=== PATIENT | female | born 1945 | race Caucasian/White ===

== ENCOUNTER 2017-10-29 10:19 | Inpatient (IN) | payer MEDICARE ==
[~2017-10-29] VITALS: Ht 170.2 cm; Wt 68.5 kg
--- NOTE | ~2017-10-29 | PN ---
PATIENT:KIRT PADILLA MEDICAL RECORD: [id number] LOCATION:[facility] Ehs[facility]hung[facility]at[facility] ADMISSION DATE: 10/29/17 PROGRESS NOTE DATE OF SERVICE: 11/11/2017 SUBJECTIVE: The patient's case was discussed with staff. She has no new complaint. OBJECTIVE: The patient denies intent to harm herself or others. She is severely impaired cognitively, but showing no evidence of acute or direct dangerousness to others or herself. ASSESSMENT: No change in diagnoses. PLAN: The patient will be transitioned out of the hospital into the [facility] today. She is going to return to the [facility], which is the same [facility] that she was sent to us from. She has fairly limited insight about her condition. Her long-term prognosis is guarded. TRANSINT:[id number] Voice Confirmation ID: [id number] DOCUMENT ID: [id number] HANNA GROSS MD at 1329 CC: [id number] DICTATION DATE: 11/11/17 1349 HAND DRY CLEANER: 11/11/17 1434 DIS IN 11/11/17 [facility] [address] [place] [address]
--- NOTE | ~2017-10-29 | PN ---
PATIENT:KIRT PADILLA MEDICAL RECORD: [id number] LOCATION:[facility]ED [facility] ADMISSION DATE: 10/29/17 PROGRESS NOTE DATE OF SERVICE: 11/09/2017 SUBJECTIVE: The patient's case was discussed with staff. She has no new complaint. OBJECTIVE: The patient is in good behavioral control with limited insight about her condition. She does tolerate her medicines well. Eye contact is fair. Concentration is fair. ASSESSMENT: No change in diagnoses. PLAN: The patient's mood has dramatically improved since admission. I have her taking a low dose of Zoloft and I am going to go ahead and increase the dose to see if any additional clinical benefit can be attained. Her long-term prognosis is guarded. I do anticipate she will be transitioned back to the [facility] soon. TRANSINT:[id number] Voice Confirmation ID: [id number] DOCUMENT ID: [id number] HANNA GROSS MD at 1402 CC: [id number] DICTATION DATE: 11/09/17 1438 OPERATIONS INTERN: 11/09/17 1534 ADM IN [facility] [address] [place] [address]
--- NOTE | ~2017-10-29 | PN ---
PATIENT:KIRT PADILLA MEDICAL RECORD: [id number] LOCATION:OBED [facility] ADMISSION DATE: 10/29/17 PROGRESS NOTE DATE OF SERVICE: 11/06/2017 SUBJECTIVE: The patient's case was discussed with staff. She has no new complaint. OBJECTIVE: The patient denies intent to harm herself or others. She generally tolerates her medicines well. She is actually much more pleasant than she has been. She still wants to go live in her own home in [place], which is obviously not realistic, but at this point she is not threatening or aggressive. ASSESSMENT: No change in diagnoses. PLAN: I have reviewed current medicines and plan to maintain them at this dose. Follow up will be with her primary care physician and it is my understanding that her next of kin, who is her sister, is wanting her to return to the [facility]. TRANSINT:[id number] Voice Confirmation ID: [id number] DOCUMENT ID: [id number] HANNA GROSS MD at 0742 CC: [id number] DICTATION DATE: 11/06/17 1452 DINKER: 11/06/17 1523 ADM IN [facility] [address] [place] [address]
--- NOTE | ~2017-10-29 | PN ---
PATIENT:KIRT PADILLA MEDICAL RECORD: [id number] LOCATION:[facility]ED [facility] ADMISSION DATE: 10/29/17 PROGRESS NOTE DATE OF SERVICE: 11/08/2017 SUBJECTIVE: The patient's case was discussed with staff. She has no new complaint. OBJECTIVE: The patient is in good behavioral control with limited insight about her condition. She does tolerate her medicines well. Eye contact is fair. Concentration is fair. ASSESSMENT: No change in diagnoses. PLAN: Brief supportive and educational interventions were made. Long-term prognosis is guarded. TRANSINT:[id number] Voice Confirmation ID: [id number] DOCUMENT ID: [id number] HANNA GROSS MD at 1428 CC: [id number] DICTATION DATE: 11/08/17 1026 INCOMING FREIGHT CLERK: 11/08/17 1300 ADM IN [place] [id number] [place] [address]
--- NOTE | ~2017-10-29 | PN ---
PATIENT:KIRT PADILLA MEDICAL RECORD: [id number] LOCATION:[facility]ED [facility] ADMISSION DATE: 10/29/17 PROGRESS NOTE DATE OF SERVICE: 11/02/2017 SUBJECTIVE: The patient's case was discussed with staff. She has no new complaint. OBJECTIVE: The patient is in good behavioral control with limited insight about her condition. She tolerates her medicines well. She is sleeping well. She is eating reasonably well. She is not as agitated as she has been and I would anticipate she could be transitioned out of the hospital soon if this level of improvement is maintained. TRANSINT:[id number] Voice Confirmation ID: [id number] DOCUMENT ID: [id number] HANNA GROSS MD at 1508 CC: [id number] DICTATION DATE: 11/02/17 1458 IN HOME TUTOR: 11/02/17 1650 ADM IN [place] [id number] [place] [address]
--- NOTE | ~2017-10-29 | PN ---
PATIENT:KIRT PADILLA MEDICAL RECORD: [id number] LOCATION:[facility]ED [facility] ADMISSION DATE: 10/29/17 PROGRESS NOTE DATE OF SERVICE: 11/05/2017 SUBJECTIVE: The patient's case was discussed with staff. She has no new complaint. OBJECTIVE: The patient is in good behavioral control with limited insight about her condition. She tolerates her medicines well. Eye contact is fair. ASSESSMENT: No change in diagnoses. PLAN: Supportive and educational interventions were made. Long-term prognosis is guarded. TRANSINT:[id number] Voice Confirmation ID: [id number] DOCUMENT ID: [id number] HANNA GROSS MD at 1223 CC: [id number] DICTATION DATE: 11/05/17 1357 CNC SUPERVISOR: 11/05/17 1625 ADM IN [place] [id number] [place] [address]
--- NOTE | ~2017-10-29 | PN ---
PATIENT:KIRT PADILLA MEDICAL RECORD: [id number] LOCATION:[facility] ADMISSION DATE: 10/29/17 PROGRESS NOTE DATE OF SERVICE: 11/10/2017 SUBJECTIVE: The patient's case was discussed with staff. She has no new complaint. OBJECTIVE: The patient denies intent to harm herself or others. She is actually much more pleasant than she has been, although she is still not eating very well. ASSESSMENT: No change in diagnoses. PLAN: The patient will be transitioned back to the [facility] tomorrow. Her long-term prognosis is guarded. Followup will be with the [facility] physician. TRANSINT:[id number] Voice Confirmation ID: [id number] DOCUMENT ID: [id number] HANNA GROSS MD at 1315 CC: [id number] DICTATION DATE: 11/10/17 1457 DOUGH PUNCHER: 11/10/17 1538 ADM IN [place] [address] [place] [address]
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
--- NOTE | ~2017-10-29 | PN ---
PATIENT:KIRT PADILLA MEDICAL RECORD: [id number] LOCATION:OBED [facility] ADMISSION DATE: 10/29/17 PROGRESS NOTE DATE OF SERVICE: 11/07/2017 SUBJECTIVE: The patient's case was discussed with staff. She has no new complaint. OBJECTIVE: The patient is in good behavioral control with limited insight about her condition. She tolerates her medicines well. She is much more pleasant than she was a few days ago. There is no evidence of sedation. The record showed that she has not had a bowel movement for over a week, but she is ambulatory and toilets herself, so I do not think that is correct. Although she is not eating all of her meals, what she is eating is adequate and I am not going to make an issue of that at this point. She definitely needs half-way placement or put another way 07-bxzf-v-day supervision. Given her circumstances, the half-way is the least restrictive environment and at this point, I would plan to return her to the [facility] soon. TRANSINT:[id number] Voice Confirmation ID: [id number] DOCUMENT ID: [id number] HANNA GROSS MD at 0949 CC: [id number] DICTATION DATE: 11/07/17818 LOBSTER MAN: 11/07/17 0855 ADM IN [place] [address] [place] [address]
--- NOTE | ~2017-10-29 | PN ---
PATIENT:KIRT PADILLA MEDICAL RECORD: [id number] LOCATION:[facility]ED [address] ADMISSION DATE: 10/29/17 PROGRESS NOTE DATE OF SERVICE: 11/04/2017 SUBJECTIVE: The patient's case was discussed with staff. She has no new complaint. OBJECTIVE: The patient is in good behavioral control with limited insight about her condition. She tolerates her medicines well. Eye contact is fair. ASSESSMENT: No change in diagnoses. PLAN: The patient will be maintained on current medicines, which I have reviewed. I am going to start her on an antidepressant medication. She is denying depressive symptoms, but she has an observed depressed mood and she also has some irritability that I think will be helped by the medication. The relative risks and benefits have been weighed and I think clearly there is likelihood of doing more good than the low risk associated with the Zoloft. TRANSINT:[id number] Voice Confirmation ID: [id number] DOCUMENT ID: [id number] HANNA GROSS MD at 0849 CC: [id number] DICTATION DATE: 11/04/17 1613 DEPORTATION OFFICER: 11/04/17 1756 ADM IN [place] [id number] [place] [address]
--- NOTE | ~2017-10-29 | PN ---
PATIENT:KIRT PADILLA MEDICAL RECORD: [id number] LOCATION:[facility]ED [facility] ADMISSION DATE: 10/29/17 PROGRESS NOTE DATE OF SERVICE: 10/31/2017 SUBJECTIVE: The patient's case was discussed with staff. She has no new complaint. OBJECTIVE: The patient is in good behavioral control with limited insight about her condition. She tolerates her medicines well. Eye contact is fair. Concentration is fair. ASSESSMENT: No change in diagnoses. PLAN: Brief supportive and educational interventions were made. Long-term prognosis is guarded. The patient has been somewhat anxious and I am going to increase the dose of her BuSpar to 10 mg twice daily. TRANSINT:[id number] Voice Confirmation ID: [id number] DOCUMENT ID: [id number] HANNA GROSS MD at 1039 CC: [id number] DICTATION DATE: 10/31/17 1159 NON DESTRUCTIVE EVALUATION TECHNICIAN: 10/31/17 1215 ADM IN [place] [address] [place] [address]
--- NOTE | ~2017-10-29 | PN ---
PATIENT:KIRT PADILLA MEDICAL RECORD: [id number] LOCATION:EhsanALEXISMalcolm [address] ADMISSION DATE: 10/29/17 PROGRESS NOTE DATE OF SERVICE: 10/30/2017 SUBJECTIVE: The patient's case was discussed with staff. She has no new complaint. OBJECTIVE: The patient denies intent to harm herself or others. She is withdrawn and clearly impaired cognitively, but is actively participating in treatment. ASSESSMENT: No change in diagnoses. PLAN: The patient will have her Klonopin discontinued. She certainly is calm at this point and it may need to be restarted or restarted at a lower dose, but for today, I am going to hold the medication and will observe any changes that occur. TRANSINT:[id number] Voice Confirmation ID: [id number] DOCUMENT ID: [id number] HANNA GROSS MD at 1007 CC: [id number] DICTATION DATE: 10/30/17 1436 MANAGER BAKERY: 10/30/17 1448 ADM IN [place] [id number] [place] [id number]
--- NOTE | ~2017-10-29 | PN ---
PATIENT:KIRT PADILLA MEDICAL RECORD: [id number] LOCATION:OBED [address] ADMISSION DATE: 10/29/17 PROGRESS NOTE DATE OF SERVICE: 11/01/2017 SUBJECTIVE: The patient's case was discussed with staff. She has no new complaint. OBJECTIVE: The patient denies intent to harm herself or others. She generally tolerates her medicines well. Eye contact is fair. Concentration is fair. ASSESSMENT: No change in diagnoses. PLAN: Supportive and educational interventions were made. Long-term prognosis is guarded. TRANSINT:[id number] Voice Confirmation ID: [id number] DOCUMENT ID: [id number] HANNA GROSS MD at 1320 CC: [id number] DICTATION DATE: 11/01/17 1112 SECURITY MONITOR: 11/01/17 1151 ADM IN [place] [id number] [place] [address]
--- NOTE | ~2017-10-29 | PN ---
PATIENT:KIRT PADILLA MEDICAL RECORD: [id number] LOCATION:OBED Villalta[facility] ADMISSION DATE: 10/29/17 PROGRESS NOTE DATE OF SERVICE: 11/03/2017 SUBJECTIVE: The patient's case was discussed with staff. She has no new complaint. OBJECTIVE: The patient is in good behavioral control with limited insight about her condition. She does tolerate her medicines well. She is irritable and angry, but not physically aggressive. It is clear she is quite confused. ASSESSMENT: No change in diagnoses. PLAN: The patient will be started on Namenda at a dose of 2.5 mg twice daily. Namenda is being used to treat her underlying cognitive impairment. She will be monitored for clinical changes associated with its use. TRANSINT:[id number] Voice Confirmation ID: [id number] DOCUMENT ID: [id number] HANNA GROSS MD at 1520 CC: [id number] DICTATION DATE: 11/03/17 1541 BOX ANNEALER: 11/03/17 1634 ADM IN [place] [id number] [place] [id number]
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
[2017-10-29] MEDS ORDERED: ANORO ELLIPTA1 EACH INH (11:01)
[2017-10-29] MEDS ORDERED: LIPITOR10 MG PO (11:02)
[2017-10-29] MEDS ORDERED: BUSPAR5 MG PO (11:03)
[2017-10-29] MEDS ORDERED: CALCIUM 600+D T1 TA1 PO (11:06)
[2017-10-29] MEDS ORDERED: ARICEPT23 MG PO (11:07)
[2017-10-29] MEDS ORDERED: IBUPROFEN200 MG PO (11:19)
[2017-10-29] MEDS ORDERED: REMERON15 MG PO (11:20)
[2017-10-29] MEDS ORDERED: SYNTHROID50 MCG PO (11:20)
[2017-10-29] MEDS ORDERED: ZYPREXA2.5 MG PO (11:21)
[2017-10-29] MEDS ORDERED: PRESERVISION AR1 CAP PO (11:21)
[2017-10-29] MEDS ORDERED: SUPER B COMPLE150 MG PO (11:21)
[2017-10-29 12:01] LABS: BASOPHILS 0.2 % (0-2); EOSINOPHILS 0.2 % (0-7); HEMATOCRIT 38.6 % (36.0-48.0); HEMOGLOBIN 12.8 g/dL (12-16); IMMATURE GRANULOCYTES 0.2 % (0-5); LYMPHOCYTES 23.6 % (15-50); MCH 29.8 pg (26.0-34.0); MCHC 33.2 g/dL (31.0-37.0); MCV 89.8 fL (80.0-100.0); MEAN PLATELET VOLUME 9.9 fL (7.4-10.4); NEUTROPHILS 70.8 % (40-80); PLATELET COUNT 162 10x3/uL (130-400); RDW 13.5 % (11.5-14.5); WBC 8.4 10x3/uL (4.8-10.8)
[2017-10-29 12:10] LABS: ALBUMIN 3.9 g/dL (3.4-5.0); ALKALINE PHOSPHATASE 58 U/L (46-116); ALT (SGPT) 19 U/L (10-68); BILIRUBIN - TOTAL 0.53 mg/dL (0.2-1.3); CALC OSMOLALITY 282 mosm/kg (275-300); CALCIUM 9.2 mg/dL (8.5-10.1); CARBON DIOXIDE 29.6 mmol/L (21.0-32.0); CHLORIDE - SERUM 104 mmol/L (98-107); CHOL - HDL RATIO 3.4 ratio (2.3-4.1); CHOLESTEROL, TOTAL 167 mg/dL (0-200); CREATININE - SERUM 0.8 mg/dL (0.6-1.3); GLUCOSE 97 mg/dL (74-106); HDL CHOLESTEROL 49 mg/dL (32-96); LDL CHOLESTEROL 105 mg/dL (0-100); LDL-HDL RATIO 2.1 ratio (1.5-3.5); POTASSIUM - SERUM 3.6 mmol/L (3.5-5.1); PROTEIN - SERUM 8.2 g/dL (6.4-8.2); SODIUM 140 mmol/L (136-145); THYROID STIMULATING HORMONE 0.64 uIU/mL (0.36-3.74); TRIGLYCERIDE 68 mg/dL (30-200); UREA NITROGEN 23 mg/dL (7-18); eGFR NON AFRICAN AMERICAN 75 mL/min (90-120)
[2017-10-29 15:10] VITALS: BP 134/51; BMI 28.9
[2017-10-29 19:45] VITALS: BP 127/54
[2017-10-30 06:16] LABS: VITAMIN D 25 HYDROXY 39.2 ng/mL (30.0-100.0)
[2017-10-30 07:35] LABS: RAPID PLASMA REAGIN Non Reactive (Non Reactive)
[2017-10-30 08:05] VITALS: BP 152/60
[2017-10-30 09:20] LABS: FOLATE (FOLIC ACID) - SERUM >20.0 ng/mL (>3.0)
[2017-10-30 13:03] VITALS: BMI 28.8
[2017-10-30 19:31] VITALS: BP 125/57
[2017-10-31 09:35] VITALS: BP 129/69; BP 129/74
[2017-10-31 22:32] VITALS: BP 121/61
[2017-11-01 08:18] VITALS: BP 169/75
[2017-11-01 19:57] VITALS: BP 134/49
[2017-11-02 07:48] VITALS: BP 131/73
[2017-11-02 20:23] VITALS: BP 133/59; BP 151/87
[2017-11-03 08:55] VITALS: BP 135/64
[2017-11-03 21:12] VITALS: BP 133/68
[2017-11-03 23:42] LABS: APPEARANCE CLEAR (CLEAR); BILIRUBIN NEGATIVE (NEGATIVE); COLOR YELLOW (YELLOW); GLUCOSE NEGATIVE (NEGATIVE); KETONE NEGATIVE (NEGATIVE); NITRITE NEGATIVE (NEGATIVE); PROTEIN NEGATIVE (NEGATIVE); UROBILINOGEN NORMAL (NORMAL)
[2017-11-03 23:43] LABS: BACTERIA FEW /hpf (NONE SEEN); EPITHELIAL CELLS 0-5 /hpf (0-5); RED CELLS - URINE 0-5 /hpf (0-5)
[2017-11-04 08:15] VITALS: BP 155/82
[2017-11-04 20:11] VITALS: BP 143/55
[2017-11-05 10:47] VITALS: BP 125/60
[2017-11-05 19:48] VITALS: BP 122/52
[2017-11-06 09:55] VITALS: BP 130/60
[2017-11-06 21:20] VITALS: BP 150/85
[2017-11-07 08:00] VITALS: BP 163/78
[2017-11-07 20:06] VITALS: BP 160/74
[2017-11-08 07:00] VITALS: BP 168/67
[2017-11-08 20:21] VITALS: BP 109/69
[2017-11-09 07:00] VITALS: BP 143/66
[2017-11-09 12:10] VITALS: Ht 170.2 cm; Wt 68.5 kg
[2017-11-10 07:00] VITALS: BP 119/52
[2017-11-10] MEDS ORDERED: NAMENDA5 MG PO (14:59)
[2017-11-10] MEDS ORDERED: ZOLOFT50 MG PO (14:59)
[2017-11-10] MEDS ORDERED: BUSPAR10 MG PO (14:59)
[2017-11-10 19:41] VITALS: BP 146/53
[2017-11-11 10:22] VITALS: BP 106/53
== END 2017-11-11 13:00 | DRG 57 ==
LOC: D.PSYCH 10:19
PROVIDERS: Psychiatry & Neurology Psychiatry
DX: G30.1 Alzheimer's disease with late onset (principal); F02.81 Dementia in other diseases classified elsewhere, unspecified severity, with behavioral disturbance; F32.1 Major depressive disorder, single episode, moderate; F41.1 Generalized anxiety disorder; E03.9 Hypothyroidism, unspecified; E78.5 Hyperlipidemia, unspecified; Z87.891 Personal history of nicotine dependence; J44.9 Chronic obstructive pulmonary disease, unspecified; K59.00 Constipation, unspecified

== ENCOUNTER 2018-03-26 15:14 | Inpatient (IN) | payer MEDICARE ==
[~2018-03-26] VITALS: Ht 157.5 cm; Wt 68.9 kg
[~2018-03-26 15:14] MED LIST: ANORO ELLIPTA1 EACH INH; ARICEPT23 MG PO; BUSPAR10 MG PO; BUSPAR5 MG PO; CALCIUM 600+D T1 TA1 PO; IBUPROFEN200 MG PO; LIPITOR10 MG PO; NAMENDA5 MG PO; PRESERVISION AR1 CAP PO; REMERON15 MG PO; SUPER B COMPLE150 MG PO; SYNTHROID50 MCG PO; ZOLOFT50 MG PO; ZYPREXA2.5 MG PO
[2018-03-26] MEDS ORDERED: ARICEPT23 MG PO (15:41)
[2018-03-26] MEDS ORDERED: FUROSEMIDE20 MG PO (15:42)
[2018-03-26] MEDS ORDERED: REMERON15 MG PO (15:43)
[2018-03-26] MEDS ORDERED: preservision (15:44)
[2018-03-26] MEDS ORDERED: RISPERDAL0.25 MG PO (15:45)
[2018-03-26] MEDS ORDERED: ZOLOFT100 MG PO (15:46)
[2018-03-26] MEDS ORDERED: ALDACTONE100 MG PO (15:47)
[2018-03-26] MEDS ORDERED: SUPER B COMPLE150 MG PO (15:48)
[2018-03-26] MEDS ORDERED: K-TAB10 MEQ PO (15:57)
[2018-03-26 16:20] VITALS: BP 114/60; BMI 27.8
[2018-03-26 16:48] VITALS: BP 114/60; BMI 27.8
--- NOTE | 2018-03-26 18:31 | NUR ---
The patient is admitted to [facility] from the [facility]. She arrives on the stretcher with two EMS. She is confused, she does not know where she is or why she is here. She is having auditory hallucinations. She lifted her shirt and she talked to someone in there. She ambulates, she has a red left arm. She is wearing a splint from a recent break in her arm. Her left hand has some reddened areas in between the third and fourth finger. She came to us because she has been combative with other residents and she was putting soap on her skin and now her skin is inflammed on the right forearm.
[2018-03-26 20:03] LABS: BASOPHILS 0.2 % (0-2); EOSINOPHILS 1.1 % (0-7); HEMATOCRIT 37.9 % (36.0-48.0); HEMOGLOBIN 12.5 g/dL (12-16); IMMATURE GRANULOCYTES 0.1 % (0-5); LYMPHOCYTES 25.2 % (15-50); MCH 29.3 pg (26.0-34.0); MEAN PLATELET VOLUME 9.9 fL (7.4-10.4); MONOCYTES 7.2 % (2-11); NEUTROPHILS 66.2 % (40-80); PLATELET COUNT 192 10x3/uL (130-400); RBC 4.26 10x6/uL (4.00-5.40); RDW 13.6 % (11.5-14.5); WBC 9.1 10x3/uL (4.8-10.8)
[2018-03-26 20:29] LABS: ALBUMIN 2.4 g/dL (3.4-5.0); ALKALINE PHOSPHATASE 73 U/L (46-116); ALT (SGPT) 6 U/L (10-68); BILIRUBIN - TOTAL 0.22 mg/dL (0.2-1.3); CALC OSMOLALITY 277 mosm/kg (275-300); CARBON DIOXIDE 26.1 mmol/L (21.0-32.0); CHLORIDE - SERUM 101 mmol/L (98-107); CHOLESTEROL, TOTAL 153 mg/dL (0-200); GLUCOSE 76 mg/dL (74-106); HDL CHOLESTEROL 38 mg/dL (32-96); LDL CHOLESTEROL 92 mg/dL (0-100); LDL-HDL RATIO 2.4 ratio (1.5-3.5); POTASSIUM - SERUM 3.2 mmol/L (3.5-5.1); PROTEIN - SERUM 7.5 g/dL (6.4-8.2); SODIUM 139 mmol/L (136-145); THYROID STIMULATING HORMONE 3.95 uIU/mL (0.36-3.74); TRIGLYCERIDE 117 mg/dL (30-200); UREA NITROGEN 16 mg/dL (7-18)
[2018-03-26 20:32] LABS: eGFR NON AFRICAN AMERICAN > 90 mL/min (90-120)
[2018-03-26 20:33] LABS: CREATININE - SERUM < 0.6 mg/dL (0.6-1.3)
--- NOTE | 2018-03-26 20:44 | NUR ---
WENT TO DO EKG IN [facility]. TOOK HER INTO OPEN ROOM AND ATTEMPTED TO PUT EKG STICKERS ON CHEST. PATIENT BECAME COMBATIVE, COULD NOT DO EKG.
--- NOTE | 2018-03-26 22:00 | NUR ---
CRITICAL CALCIUM OF 4 RECEIVED FROM LAB. DOCTOR DIOR NOTIIFIED. ORDER TO START IV AND INFUSE ONE AMP OF CALCIUM GLUCONATE IV AND RECHECK CALCIUM IN MORNING RECEIVED. 22 G IV STARTED TO LEFT FOREARM X 1 ATTEMPT. RETURN BLOOD AND FLUSHES WITHOUT DIFFICULTY. SALINE LOC'D. AWAITING FOR MANAGEMENT AIDE TO BRING CALCIUM GLUCONATE.
--- NOTE | 2018-03-27 01:00 | NUR ---
RECEIVED IN PATIENT ROOM. RESTING IN BED WITH EYES OPEN. CALM AND COOPERATIVE WITH CARE AND ASSESSMENT. NO SIGNS OF AGGRESSION. REDIRECT AND REORIENT NEEDED. RESTING IN BED WITH EYES CLOSED AT THIS TIME. CONTINUE PLAN OF CARE.
[2018-03-27 08:00] VITALS: BP 118/62
[2018-03-27 08:11] VITALS: Ht 157.5 cm; Wt 68.9 kg
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
[2018-03-27 18:03] LABS: APPEARANCE CLEAR (CLEAR); BILIRUBIN NEGATIVE (NEGATIVE); COLOR YELLOW (YELLOW); GLUCOSE NEGATIVE (NEGATIVE); KETONE NEGATIVE (NEGATIVE); NITRITE NEGATIVE (NEGATIVE); PROTEIN NEGATIVE (NEGATIVE); SPECIFIC GRAVITY 1.015 (1.005-1.020); UROBILINOGEN NORMAL (NORMAL)
[2018-03-27 21:16] VITALS: BP 138/69
--- NOTE | 2018-03-28 00:40 | NUR ---
RECEIVED IN PATIENT ROOM. GETTING READY FOR BED. CALM AND COOPERATIVE WITH CARE AND ASSESSMENT. NO SIGSN OF AGGRESSION. REDIRECT AND REORIENT NEEDED. RESTING IN BED WITH EYES CLOSED AT THIS TIME. CONTINUE PLAN OF CARE.
[2018-03-28 08:00] VITALS: BP 116/58
--- NOTE | 2018-03-28 11:13 | PSY ---
PATIENT NAME:KIRT PADILLA MEDICAL RECORD: [id number] : 47 LOCATION:[address] ADMISSION DATE: 03/26/18 ACCOUNT: [id number] PSYCHIATRIC EVALUATION DATE OF EVALUATION: 03/27/18 PSYCHIATRIC EVALUATION IDENTIFYING DATA: The patient is 72 years old and she is admitted to the hospital on a voluntary basis. CHIEF COMPLAINT: Agitation. HISTORY OF PRESENT ILLNESS: The patient lives in the [facility]. She has a known well-established diagnosis of dementia and in fact was hospitalized here in October because of behavior problems and agitation associated with the dementia. She has been observed having some auditory hallucinations. She has also been observed to be behaving in a bizarre way and has been combative with the staff at the [facility]. They are referring her to us for evaluation and treatment. The patient is fairly significantly impaired cognitively and has no recollection for these past events. PAST MEDICAL HISTORY: Significant for hepatitis, hypothyroidism, hypertension, hyperlipidemia, COPD, and osteoarthritis. PAST PSYCHIATRIC HISTORY: Significant for long-standing dementia along with history of alcohol abuse and depressive symptoms. ALLERGIES: No known drug allergies. CURRENT MEDICATIONS: Include potassium, Synthroid, Lasix, Risperdal, BuSpar, Zoloft, Aldactone, and Lipitor. SOCIAL HISTORY: The patient is single. She has never been . She has no children. She was a of the [employer] and then worked for the [employer]. Although she drank heavily through her adult life, she was a reasonably functional individual. She has no history of legal entanglements. MENTAL STATUS EXAMINATION: The patient is awake, alert, and oriented to person and place. Her mood is euthymic. Her affect is appropriate. Thought processes are goal directed. Her memory, concentration, and abstraction abilities are moderately impaired. She denies any intent to harm herself or others as well as psychotic symptoms. ASSETS: Supportive family members. LIABILITIES: Limited insight. 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 AXIS II: None. AXIS III: Hypocalcemia, hypertension, COPD, hyperlipidemia, osteoarthritis, hypothyroidism, and chronic constipation. AXIS IV: Moderate stressors. AXIS V: Global assessment of functioning is 30. PLAN: At this time, the patient is admitted to the hospital secondary to psychotic symptoms and agitation associated with a dementing illness. She will be treated with both mood stabilizing and memory enhancing medications. Her long-term prognosis is guarded. TRANSINT:[id number] Voice Confirmation ID: [id number] DOCUMENT ID: [id number] HANNA GROSS MD at 1113 CC: [id number] DICTATION DATE: 03/27/18 1506 DAIRY SPECIALIST: 03/27/18 1537 ADM IN [place] [id number] [place] [address]
--- NOTE | 2018-03-28 12:02 | NUR ---
B) PT IS ALERT AND ORIENTED WITH CONFUSION NOTED. PT IS DEMANDING AT TIMES. PT SHOWS AGGRESSION TOWARDS OTHERS PTS AT TIMES. REDIRECTED NEEDED. I) PROVIDE PRESCRIBED MEDS R) MED COMPLIANT P) CPOC
--- NOTE | 2018-03-28 16:17 | NUR ---
FAMILY PRESENT REQUESTING PTS GLASSES. TECH FOUND GLASSES WRAPPED IN PAPER TOWEL IN TRACH CAN IN PTS ROOM. GLASSES REMOVED CLEANED AND GIVEN TO PT AND FAMLIY INFORMED GLASSES FOUND.
--- NOTE | 2018-03-28 20:28 | NUR ---
RECEIVED IN BEDROOM. RESTING IN BED WITH EYES CLOSED. RESPONDS TO VOICE. CALM AND COOPERATIVE WITH CARE AND ASSESSMWENT. NO SIGNS OF AGGRESSION. REDIRECT AND REORIENT NEEDED. CONTINUES TO REST QUIETLY IN BED. CONTINUE PLAN OF CARE
--- NOTE | 2018-03-28 21:38 | NUR ---
PT LAYING IN BED RESTING. DENIES PAIN AT THIS TIME. VITALS STABLE. SPLINT TO R WRIST. EXCORIATION TO JEANNIE HANDS, CREAM APPLIED. PT ASKED WHAT MEDICATIONS SHE WAS GETTING, INFORMED HER OF THE MEDS. PT UPSET THAT I DID NOT PUT HER NAME ON THE MED CUP WHEN HANDED THE MEDS. ATTEMPTED TO PUT HER NAME ON THE PLASTIC CUP WITH MY PEN THAT I HAD AVAILABLE. PT STILL UNHAPPY AND DISPLEASED BUT TOOK THE MEDS. I PUT PT NAME ON WATER CUP TO PLEASE HER. PT LAID BACK DOWN. BED LOWERED AND LOCKED. RIVERA IN REACH. WILL CONTINUE TO MONITOR.
[2018-03-28 22:06] VITALS: BP 122/70
[2018-03-29 06:18] LABS: ANION GAP 14.3 mmol/L (8-16); CALCIUM 9.3 mg/dL (8.5-10.1); CARBON DIOXIDE 25.7 mmol/L (21.0-32.0); CREATININE - SERUM 1.1 mg/dL (0.6-1.3)
--- NOTE | 2018-03-29 10:00 | NUR ---
RECEIVED PATIENT IN DINING ROOM FOR B'FAST, ALERT, CALM, QUIET, PARANOID, WILL NOT TAKE MEDICATIONS UNLESS THE NURSE WRITES PATIENT NAME ON THE MED CUP. 0 MEDS ADMIN PER ORDERS (NAME ON CUP), COMPLETE COMPLIANCE NOTED. COOPERATIVE WITH GROUP AND STAFF. CONT POC INCLUDING MEDS AND GROUP THERAPY DIRECTED.
[2018-03-29 10:32] VITALS: BP 123/55
[2018-03-29 13:12] LABS: VITAMIN D 25 HYDROXY 40.7 ng/mL (30.0-100.0)
--- NOTE | 2018-03-29 13:23 | PN ---
PATIENT:KIRT PADILLA MEDICAL RECORD: [id number] LOCATION:[facility] ADMISSION DATE: 03/26/18 PROGRESS NOTE DATE OF SERVICE: 03/28/2018 SUBJECTIVE: The patient's case was discussed with staff. She has no new complaint. OBJECTIVE: The patient is in good behavioral control. She has limited insight about her condition. She has been difficult to redirect at times. ASSESSMENT: No change in diagnoses. PLAN: Current medicines have been reviewed and will be maintained. I am going to reduce the dose of her Zoloft to 100 mg daily. I see no benefit to the unusually high dose that she is taking. TRANSINT:[id number] Voice Confirmation ID: [id number] DOCUMENT ID: [id number] HANNA GROSS MD at 1323 CC: [id number] DICTATION DATE: 03/28/18 1119 HEALTH INFORMATION CLERK: 03/28/18 1527 ADM IN [place] [address] [place] [address]
--- NOTE | 2018-03-29 15:01 | NUR ---
Nutrition Follow Up: Diet: AHA PO Intake: 89% meal avg BM: 03/27/18 Meds and labs reviewed Rec continue current diet. RD following.
[2018-03-29 16:11] LABS: FOLATE (FOLIC ACID) - SERUM >20.0 ng/mL (>3.0)
[2018-03-29 20:40] VITALS: BP 122/70
[2018-03-30 03:09] LABS: RAPID PLASMA REAGIN Non Reactive (Non Reactive)
--- NOTE | 2018-03-30 05:05 | NUR ---
B) patient is alert and oriented to self, calm and cooperative, will not take medication unless you write her name on the med cup, I) Administered scheduled medications with her name on cup R) Medication compliant, quiet and calm, P) Continue plan of care.
--- NOTE | 2018-03-30 09:21 | NUR ---
RECEIVED PATIENT IN DINING ROOM FOR B'FAST, ALERT, CALM, COOPERATIVE, NO AGGRESSION NOTED. MEDS ADMIN PER ORDERS WITH COMPLETE MED COMPLIANCE NOTED. COOPERATIVE WITH GROUP AND STAFF REQUESTS. CONT POC INCLUDING MEDS AND GROUP THERAPY DIRECTED.
--- NOTE | 2018-03-30 10:58 | PN ---
PATIENT:KIRT PADILLA MEDICAL RECORD: [id number] LOCATION:[facility] ADMISSION DATE: 03/26/18 PROGRESS NOTE DATE OF SERVICE: 03/29/2018 SUBJECTIVE: The patient's case was discussed with staff. She has no new complaint. OBJECTIVE: The patient is in good behavioral control with limited insight about her condition. She does tolerate her medicines well. The patient's critical calcium level has been corrected. Her behavior seems to have improved, but I am not sure if that is related to the low calcium or if it just is an improvement for some other reason. ASSESSMENT: No change in diagnoses. PLAN: Current medicines have been reviewed and will be maintained. Her long-term prognosis is guarded. Brief supportive and educational interventions were made. TRANSINT:[id number] Voice Confirmation ID: [id number] DOCUMENT ID: [id number] HANNA GROSS MD at 1058 CC: [id number] DICTATION DATE: 03/29/18 1347 HIDE DYER: 03/29/18 1808 ADM IN [place] [id number] [place] [address]
[2018-03-30 11:27] VITALS: BP 152/41
--- NOTE | 2018-03-30 19:25 | NUR ---
SALINE LOCK DC'D PER ORDERS. NO BLEEDING OR S/S INFECTION NOTED. ESTEVAN WELL.
[2018-03-30 19:48] VITALS: BP 122/61
--- NOTE | 2018-03-31 02:20 | NUR ---
[facility] RESTING IN BED WITH EYES CLOSED. RESPONDS TO VOICE. CALM AND COOPERATIVE WITH CARE AND ASSESSMENT. NO SIGNS OF AGGRESSION. REDIRECT AND REORIENT NEEDED. RESTING IN [place] WITH EYES CLOSED AT THIS TIME. CONTINUE PLAN OF CARE.
[2018-03-31 08:00] VITALS: BP 166/93
--- NOTE | 2018-03-31 11:00 | NUR ---
B) RECEIVED IN [facility] WITH PEERS IN WHEELCHAIR. PATIENT IS AWAKE AND ORIENTED TO NAME AND PLACE. CALM AND COOPERATIVE WITH CARE AND ASSESSMENT. I) ADMINISTERED MEDICATIONS ORDERED. FALL PRECAUTIONS IN PLACE. P) CONTINUE PLAN OF CARE.
--- NOTE | 2018-03-31 17:30 | PN ---
PATIENT:KIRT PADILLA MEDICAL RECORD: [id number] LOCATION:[facility] ADMISSION DATE: 03/26/18 PROGRESS NOTE DATE OF SERVICE: 03/30/2018 SUBJECTIVE: The patient's case was discussed with staff. She has no new complaint. OBJECTIVE: The patient is in good behavioral control. She has not been aggressive today. ASSESSMENT: No change in diagnoses. PLAN: Current medicines have been reviewed and will be maintained. Long-term prognosis is guarded. TRANSINT:[id number] Voice Confirmation ID: [id number] DOCUMENT ID: [id number] HANNA GROSS MD at 1730 CC: [id number] DICTATION DATE: 03/30/18 1234 VOCATIONAL REHABILITATION CONSULTANT: 03/30/18 2207 ADM IN [place] [address] [place] [address]
--- NOTE | 2018-03-31 20:46 | NUR ---
RECEIVED IN DAYROOM. SITTTING IN AA CHAIR WITH PEERS AT HER SIDE. CALM AND COOPERATIVE WITH CARE AND ASSESSMENT. NO SIGNS OF AGGRESSION. REDIRECT AND REORIENT NEEDED. CONTINUES TO SIT QUIETLY. CONTINUE PLAN OF CARE
[2018-03-31 21:09] VITALS: BP 123/52
[2018-04-01 09:04] VITALS: BP 142/71
--- NOTE | 2018-04-01 10:00 | NUR ---
B) RECEIVED IN HALLWAY WITH PEERS. ALERT AND ORIENTED TO PERSON AND PLACE. CALM AND COOPERATIVE WITH CARE AND ASSESSMENT. I) ADMINISTERED SCHEDULED MEDICATIONS. FALL PRECAUTIONS IN PLACE. R) COMPLIANT WITH MEDICATIONS AND UNIT MILIEU. P) CONTINUE PLAN OF CARE.
--- NOTE | 2018-04-01 15:00 | PN ---
PATIENT:KIRT PADILLA MEDICAL RECORD: [id number] LOCATION:[facility] ADMISSION DATE: 03/26/18 PROGRESS NOTE DATE OF SERVICE: 03/31/2018 SUBJECTIVE: The patient's case was discussed with staff. She has no new complaint. OBJECTIVE: The patient is in good behavioral control with limited insight about her condition. She is not reporting any overt psychotic symptoms. She is not showing any aggressive behavior. She does have some ongoing anxiety, which is problematic from time to time and primarily has been manifesting itself as irritability. Based on this, I am going to increase the dose of her BuSpar and will monitor her for clinical changes associated with its use. TRANSINT:[id number] Voice Confirmation ID: [id number] DOCUMENT ID: [id number] HANNA GROSS MD at 1500 CC: [id number] DICTATION DATE: 03/31/18 1744 REQUISITION APPROVER: 03/31/18 1844 ADM IN [place] [id number] [place] [id number]
[2018-04-01 19:34] VITALS: BP 112/80
--- NOTE | 2018-04-02 01:00 | NUR ---
RECEIVED IN DAYROOM. SITTING IN CHAIR WHILE WATCHING TV. CALM AND COOPERATIVE WITH CARE AND ASSESSMENT. NO SIGNS OF AGGRESSION. REDIRECT AND REORIENT NEEDED. RESTING IN BED WITH EYES CLOSED AT THIS TIME. CONTINUE PLAN OF CARE.
[2018-04-02 08:10] VITALS: BP 123/75
--- NOTE | 2018-04-02 12:27 | NUR ---
B) The patient is awake, she is oriented to self. She can ambulate, but she has been using the w/c. Spoke to her sister and she said "She can walk and she needs to walk." Talked to the patient about it and she said she will walk and she did at this time. I) Provide prescribed meds. R) The patient is compliant with meds. P) Continue POC.
--- NOTE | 2018-04-02 12:48 | NUR ---
The patient had lunch and she wanted to sit back in the w/c. Explained to her that her sister would prefer she not sit in it and she said "Well, I want to" Removed the w/c from the room and the patient said "F-ck You, you dumb ass, I want to sit in the chair." Again explained the reason and she said "Well her name is Arminda, she is not your sister." The patient is clearly confused and has poor short term memory recall.
--- NOTE | 2018-04-02 21:39 | NUR ---
PATIENT IS ARGUMENTATIVE AT TIMES, LABILE, NO ADVERSE REACTION NOTED TO MEDS, WILL CONTINUE TO FOLLOW POC ORDERED.
--- NOTE | 2018-04-03 11:00 | NUR ---
B) The patient started off poorly this am, she did not want to get up and staff had to redirect her multiple times, she did get up, but she cursed them every time, but once she got up she was fine. She likes her name written on her water cup and med cup and she wants this done every time, but she is pleasant about it. She has not been aggressive today. I) Provide prescribed meds. R) The patient is compliant with meds and unit milieu. P) Continue POC.
--- NOTE | 2018-04-03 12:34 | PN ---
PATIENT:KIRT PADILLA MEDICAL RECORD: [id number] LOCATION:[facility] ADMISSION DATE: 03/26/18 PROGRESS NOTE DATE OF SERVICE: 04/02/2018 SUBJECTIVE: The patient's case was discussed with staff. She has no new complaint. OBJECTIVE: The patient denies intent to harm herself or others. She is tolerating her medicines reasonably well. ASSESSMENT: No change in diagnoses. PLAN: Supportive and educational interventions were made. Long-term prognosis is guarded. TRANSINT:[id number] Voice Confirmation ID: [id number] DOCUMENT ID: [id number] HANNA GROSS MD at 1234 CC: [id number] DICTATION DATE: 04/02/18 1501 MICROFILM CAMERA OPERATOR: 04/02/18 2128 ADM IN [place] [id number] [place] [id number]
--- NOTE | 2018-04-03 12:34 | PN ---
PATIENT:KIRT PADILLA MEDICAL RECORD: [id number] LOCATION:[facility] ADMISSION DATE: 03/26/18 PROGRESS NOTE DATE OF SERVICE: 04/01/2018 SUBJECTIVE: The patient's case was discussed with staff. She has no new complaint. OBJECTIVE: The patient is in good behavioral control with limited insight about her condition. She does tolerate her medicines well. She is poorly oriented and has severe cognitive impairment globally. The impairment is consistent with a dementing illness. She has not been aggressive today. ASSESSMENT: No change in diagnoses. PLAN: I am going to order a TSH to check her thyroid functioning. She is improving. I am certain of that. What I am not certain about is it is simply because she is in a much more supportive therapeutic environment where her constant needs are being attended to by a patient to staff ratio that is almost walked 2:1. That is not anything consistent with what she will receive in the [facility] and hopefully if she continues to improve, she can reasonably be transitioned back there after the weekend. TRANSINT:[id number] Voice Confirmation ID: [id number] DOCUMENT ID: [id number] HANNA GROSS MD at 1234 CC: [id number] DICTATION DATE: 04/01/18 1527 POWERHOUSE OILER: 04/01/182014 ADM IN [facility] [address] [place] [address]
--- NOTE | 2018-04-03 16:10 | NUR ---
FAMILY HERE TO VISIT PATIENT.
[2018-04-03 21:10] VITALS: BP 118/85
--- NOTE | 2018-04-03 23:59 | NUR ---
PATIENT IS ORIENTED TO SELF ONLY. PATIENT HAS BEEN QUIET. NO ADVERSE REACTION NOTED. DENIES ANY NEEDS OR PAIN. WILL FOLLOW POC
[2018-04-04 07:00] VITALS: BP 127/60
--- NOTE | 2018-04-04 07:00 | NUR ---
PATIENT COMBATIVE WITH CARE, CURSING, HITTING, AND KICKING AT STAFF WHILE STAFF ATTEMPTED TO GET PATIENT OUT OF BED FOR THE DAY.
--- NOTE | 2018-04-04 10:00 | PN ---
PATIENT:KIRT PADILLA MEDICAL RECORD: [id number] LOCATION:[facility] ADMISSION DATE: 03/26/18 PROGRESS NOTE DATE OF SERVICE: 04/03/2018 SUBJECTIVE: The patient's case was discussed with staff. She has no new complaint. OBJECTIVE: The patient is in good behavioral control. She is disorganized in her thought processes, but has not been openly aggressive. ASSESSMENT: No change in diagnoses. PLAN: Current medicines have been reviewed and will be maintained. Long-term prognosis is guarded. TRANSINT:[id number] Voice Confirmation ID: [id number] DOCUMENT ID: [id number] HANNA GROSS MD at 1000 CC: [id number] DICTATION DATE: 04/03/18 1239 LOOM SETTER FOURDRINIER: 04/03/18 1416 ADM IN [place] [id number] [place] [address]
--- NOTE | 2018-04-04 10:00 | NUR ---
RECEIVED PATIENT IN DINING ROOM FOR B'FAST, ALERT, CALM, COOPERATIVE, FEEDS SELF, CONFUSED. NO AGGRESSION AT THIS TIME. MEDS ADMIN PER ORDERS WITH COMPLETE MED COMPLIANCE NOTED. NO S/S ADVERSE REACTION TO MEDS. COOPERATIVE AT THIS TIME. HOWEVER, PATIENT DOES BECOME COMBATIVE WITH CARE AT TIMES. CONT POC INCLUDING MEDS AND GROUP THERAPY DIRECTED.
--- NOTE | 2018-04-04 21:41 | NUR ---
RECEIVED IN BEDROOM. RESTING IN BED WITH EYES CLOSED. RESPONDS TO VOICE. CALM AND COOPERATIVE WITH CARE AND ASSESSMENT. NO SIGNS OF AGGRESSION. REDIRECT AND REORIENT NEEDED. RESTING IN BED WITH EYES CLOSED AT THIS TIME. CONTINUE PLAN OF CARE
[2018-04-04 22:33] VITALS: BP 120/72
--- NOTE | 2018-04-05 07:35 | NUR ---
PT IS AWAKE AND ORIENTED TO SELF. PT HAS BEEN AMBULATING THIS MORNING. PT DOES USE W/C AT TIMES. PT ENCOURAGED TO AMBULATE PER STAFF. PT CALM AND COOPERATIVE WITH ASSESSMENT. REDIRECT AND REORIENT NEEDED. FALL PRECAUTIONS IN PLACE. WILL CONTINUE TO MONITOR Q 15 MINUTES FOR SAFETY. WILL CPOC.
[2018-04-05 08:10] VITALS: BP 134/70
--- NOTE | 2018-04-05 13:56 | PN ---
PATIENT:KIRT PADILLA MEDICAL RECORD: [id number] LOCATION:[facility] ADMISSION DATE: 03/26/18 PROGRESS NOTE DATE OF SERVICE: 04/04/2018 SUBJECTIVE: The patient's case was discussed with staff. She has no new complaint. OBJECTIVE: The patient is in good behavioral control. She has poor insight about her situation. ASSESSMENT: No change in diagnoses. PLAN: Brief supportive and educational interventions were made. Long-term prognosis is guarded. TRANSINT:[id number] Voice Confirmation ID: [id number] DOCUMENT ID: [id number] HANNA GROSS MD at 1356 CC: [id number] DICTATION DATE: 04/04/18 1013 TRAVELING STOREKEEPER: 04/04/18 [address] [address]
[2018-04-05 23:16] VITALS: BP 122/64
[2018-04-06 09:07] VITALS: BP 108/85
--- NOTE | 2018-04-06 10:00 | NUR ---
RECEIVED IN HALLWAY WITH PEERS. AWAKE AND ORIENTED TO SELF AND PLACE. SHE IS AMBULATING ABOUT HALLS AND ROOM TODAY. CALM AND COOPERATIVE WITH ASSESSMENT. PROVIDE PRESCRIBED MEDICATIONS. COMPLIANT WITH TAKING. CONTINUE IFRAH OF CARE.
--- NOTE | 2018-04-06 10:13 | NUR ---
Nutrition Follow Up: Chart reviewed Diet: AHA PO Intake: 89% meal avg BM: 04/01/18 - no BM x 5 days Labs reviewed Meds noted including Lasix Rec continue current diet. RD following.
--- NOTE | 2018-04-06 15:13 | PN ---
PATIENT:KIRT PADILLA MEDICAL RECORD: [id number] LOCATION:[facility] ADMISSION DATE: 03/26/18 PROGRESS NOTE DATE OF SERVICE: 04/05/2018 SUBJECTIVE: The patient's case was discussed with staff. She has no new complaint. OBJECTIVE: The patient is in good behavioral control with limited insight about her condition. She does tolerate her medicines well. She has not been aggressive today. She is much more cooperative than she has previously been. ASSESSMENT: No change in diagnoses. PLAN: I am going to increase the patient's BuSpar to 20 mg twice daily. She will be monitored for clinical changes associated with that. Her long-term prognosis is guarded. TRANSINT:[id number] Voice Confirmation ID: [id number] DOCUMENT ID: [id number] HANNA GROSS MD at 1513 CC: [id number] DICTATION DATE: 04/05/18 1552 QUALITY ASSURANCE MONITOR: 04/05/18 1750 ADM IN [place] [id number] [place] [id number]
--- NOTE | 2018-04-06 20:03 | NUR ---
RECEIVED IN BEDROOM. RESTING IN BED WITH EYES CLOSED. RESPONSD TO VOICE. CALM AND COOPERATIVE WITH CARE AND ASSESSMENT. NO SIGNS OF AGGRESSION. REDIRECT AND REORIENT NEEDED. RESTING EYES CLOSED AT THIS TIME. CONTINUE PLAN OF CARE
[2018-04-06 23:57] VITALS: BP 134/60
--- NOTE | 2018-04-07 07:30 | NUR ---
REC'D PT IN HALLWAY WITH PEERS. ALERT AND AWKE WITH CONFUSION NOTED. PT CALM AND COOPERATIVE WITH ASSESSMENT. NO AGGRESSION NOTED AT THIS TIME. REDIRECT AND REORIENT NEEDED.PRESCRIBED MEDS PROVIDED. MED COMPLIANT. WILL CONTINUE TO MONITOR Q 15 MINUTES FOR SAFETY. WILL CPOC.
[2018-04-07 08:00] VITALS: BP 141/70
--- NOTE | 2018-04-07 15:00 | PN ---
PATIENT:KIRT PADILLA MEDICAL RECORD: [id number] LOCATION:[facility] ADMISSION DATE: 03/26/18 PROGRESS NOTE DATE OF SERVICE: 04/06/2018 SUBJECTIVE: The patient's case was discussed with staff. She has no new complaint. OBJECTIVE: The patient is sleeping and eating reasonably well. She has been fairly agitated with staff, but it is primarily around personal care. She has not been otherwise openly aggressive, although verbally she will often say things that are completely inappropriate, even vulgar from a social standpoint, but they do not represent a danger to anyone, it is just ____. ASSESSMENT: No change in diagnoses. PLAN: Current medicines are going to be maintained. Long-term prognosis is guarded. I anticipate she can reasonably be transitioned out of the hospital soon if this level of improvement continues. TRANSINT:[id number] Voice Confirmation ID: [id number] DOCUMENT ID: [id number] HANNA GROSS MD at 1500 CC: [id number] DICTATION DATE: 04/06/18 1608 BLINDSTITCH LINING FELLER: 04/06/18 1829 ADM IN [facility] [address] [place] [address]
[2018-04-07] MEDS ORDERED: FLORAJEN3 CAPS460 MG PO (15:08)
[2018-04-07] MEDS ORDERED: BUSPAR10 MG PO (15:08)
[2018-04-07] MEDS ORDERED: ZOLOFT100 MG PO (15:08)
[2018-04-07] MEDS ORDERED: Bactroban ointment TOPICAL (15:09)
--- NOTE | 2018-04-07 19:35 | NUR ---
PT HAS F/U APPT WITH DR. RAMIREZ ON 04/14/18 AT 1000. PHONE # [phone] FAX # [phone]. DISCHARGE TIME IS 1130 TO 1200.
[2018-04-07 23:37] VITALS: BP 138/76
--- NOTE | 2018-04-08 03:36 | NUR ---
B) WANDERS, CONFUSED, GOT INTO WRONG BED, REDIRECTED TO HER OWN ROOM. BRACE REMAINS ON LOWER RIGHT ARM. NO AGGRESSIVE BEHAVIOR DISPLAYED. I) MEDICATE PER ORDERS, REDIRECT BEHAVIOR NEEDED, MONITOR FOR SIGNS OF DELUSIONS AND HALLUCINATIONS, SUPERVISE AND ENCOURAGE ATTENDANCE TO ADL'S. R) COOPERATIVE WHEN REDIRECTED. COMPLAINT WITH MEDICATIONS. P) MONITOR PER PLAN OF CARE.
[2018-04-08 07:00] VITALS: BP 142/72
--- NOTE | 2018-04-08 09:00 | NUR ---
AWAKE, ALERT AND CONFUSED AT TIMES. ASSESSMENT COMPLETE. MEDICATION COMPLIANT. WILL CONTINUE TO MONITOR.
--- NOTE | 2018-04-08 12:00 | NUR ---
DISCHARGE PAPERWORK COMPLETED. BELONGINGS LIST COMPLETED. MEDICATION COMPLIANT. LEFT WITH SISTER, ASH IN [place] TO GO TO THE [facility].
--- NOTE | 2018-04-08 15:55 | PN ---
PATIENT:KIRT PADILLA MEDICAL RECORD: [id number] LOCATION:[facility] ADMISSION DATE: 03/26/18 PROGRESS NOTE DATE OF SERVICE: 04/07/2018 SUBJECTIVE: The patient's case was discussed with staff. She has no new complaint. She is severely impaired cognitively, but has not been aggressive today. ASSESSMENT: No change in diagnoses. PLAN: Brief supportive and educational interventions were made. Long-term prognosis is guarded. TRANSINT:[id number] Voice Confirmation ID: [id number] DOCUMENT ID: [id number] HANNA GROSS MD at 1555 CC: [id number] DICTATION DATE: 04/07/18 1507 SQUARE CUTTER: 04/07/18 1723 [place] [address]
--- NOTE | 2018-04-09 16:27 | PN ---
PATIENT:KIRT PADILLA MEDICAL RECORD: [id number] LOCATION:[facility] ADMISSION DATE: 03/26/18 PROGRESS NOTE DATE OF SERVICE: 04/08/2018 SUBJECTIVE: The patient's case was discussed with staff. She has no new complaint. OBJECTIVE: The patient is in good behavioral control with limited insight about her condition. She tolerates her medicines well. ASSESSMENT: No change in diagnoses. PLAN: Brief supportive and educational interventions were made. Long-term prognosis is guarded. I anticipate the patient can be transitioned out of the hospital today. TRANSINT:[id number] Voice Confirmation ID: [id number] DOCUMENT ID: [id number] HANNA RGOSS MD at 1627 CC: [id number] DICTATION DATE: 04/08/18 1620 INDUSTRIAL GAS FITTER HELPER: 04/08/182200 DIS IN 04/08/18 [place] [id number] [place] [address]
--- NOTE | 2018-04-10 11:47 | DS ---
PATIENT:KIRT PADILLA :47 MEDICAL RECORD: [id number] DISCHARGE SUMMARY ADMISSION DATE: 03/26/18 DISCHARGE DATE: 04/08/18 PSYCHIATRIC DISCHARGE SUMMARY IDENTIFYING DATA: The patient is 72 years old and she is admitted to the hospital on a voluntary basis because of agitation. The patient lives in the [facility]. She has a known and established diagnosis of dementia and in fact was hospitalized here in October because of behavior problems and associated agitation. On this occasion, she is observed to be having auditory hallucinations in addition to having some anger and mood outbursts. She has been combative with the staff there. They are referring her to us for evaluation and treatment. HOSPITAL COURSE: The patient was admitted to the hospital and fully evaluated from both a medical, psychological, and social standpoint. She was treated with both mood stabilizing and memory enhancing medications. She showed improvement through the course of the hospitalization and was subsequently transferred back to the [facility]. At the time of discharge, she was no longer having psychotic symptoms, was no longer agitated, and was no longer combative. 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 AXIS II: None. AXIS III: Hypocalcemia, hypertension, COPD, hyperlipidemia, osteoarthritis, hypothyroidism, and chronic constipation. AXIS IV: Moderate stressors. AXIS V: Global assessment of functioning 35. PLAN: At the time of discharge, the patient was not acutely dangerous to herself or others. Her underlying behaviors had dramatically improved with no real improvement as one would expect in her cognition. She is to have follow up with her primary care outpatient physician. TRANSINT:[id number] Voice Confirmation ID: [id number] DOCUMENT ID: [id number] HANNA GROSS MD at 1147 CC: [id number] DICTATION DATE: 04/09/18 1632 MOTOR ELECTRICIAN: 04/10/18 0924 DIS IN 04/08/18 [place] [id number] [place] [id number]
== END 2018-04-08 12:00 | disposition home or self-care (01) | DRG 57 ==
LOC: D.PSYCH 15:14
PROVIDERS: Family Medicine; ADMIT Psychiatry & Neurology Psychiatry
DX: G30.1 Alzheimer's disease with late onset (principal); F02.81 Dementia in other diseases classified elsewhere, unspecified severity, with behavioral disturbance; N39.0 Urinary tract infection, site not specified; E83.51 Hypocalcemia; I10 Essential (primary) hypertension; J44.9 Chronic obstructive pulmonary disease, unspecified; E03.9 Hypothyroidism, unspecified; E78.5 Hyperlipidemia, unspecified; F32.9 Major depressive disorder, single episode, unspecified; F41.9 Anxiety disorder, unspecified; K59.09 Other constipation; M19.90 Unspecified osteoarthritis, unspecified site; L30.9 Dermatitis, unspecified; B95.8 Unspecified staphylococcus as the cause of diseases classified elsewhere